=== PATIENT | male | born 1975 | race American Indian/Alaskan Native ===

== ENCOUNTER 2019-03-14 15:42 | Inpatient (IN) | payer BC ==
--- NOTE | 2019-03-14 15:56 | Event Note ---
ED Screening Note ED Screening Note: went to have a physical, said his blood pressure was high he denies any symptoms no vision changes, no numbness, weakness, no CP, no SOB, no DUNN states he has not seen a PCP in 2-3 years, states it was high then but they were observing it family hx of HTN This initial assessment/diagnostic orders/clinical plan/treatment(s) is/are subject to change based on patients health status, clinical progression and re- assessment by fellow clinical providers in the ED. Further treatment and workup at subsequent clinical providers discretion. Patient/guardian urged not to elope from the ED as their condition may be serious if not clinically assessed and managed. Initial orders include: labs, MAIN for medication management
[2019-03-14] MEDS ORDERED: cloNIDine 0.2 MG TAB PO ONE (16:25)
[2019-03-14 17:02] LABS: Hematocrit 38.9 % (35.5-45.6); Hemoglobin 13.2 gm/dl (11.8-15.2); Mean Corpuscular HGB Conc 34 % (32-34); Mean Corpuscular Volume 92 fl (84-94); Platelet Count 373 K/mm3 (140-440); Red Blood Count 4.22 M/mm3 (3.65-5.03); Red Cell Distribution Width 15.7 % (13.2-15.2)
[2019-03-14 17:20] LABS: Calcium 9.4 mg/dL (8.4-10.2)
--- NOTE | 2019-03-14 17:42 | Emergency Department Report ---
ED General Adult HPI - General Chief complaint: High BP Stated complaint: HBP Time Seen by Provider: 03/14/19 15:53 Source: patient Mode of arrival: Ambulatory Limitations: No Limitations - History of Present Illness Initial comments: 44-year-old iobese male with no significant past medical history presents to the hospital with complains of elevated blood pressure. Patient starting a new job and his blood pressure was elevated with systolic greater than 200 during his work physical. Patient not had any symptoms. Denies headache, blurred vision, chest pain, shortness of breath, decreased urinary output. Last doctor visit and blood pressure check was over 2 years ago and at that time it was high with plan to monitor his bp. He hasn't followed up since. Positive family history of hypertension. - Related Data Allergies Allergy/AdvReac Type Severity Reaction Status Date / Time No Known Allergies Allergy Unverified 03/14/19 15:45 ED Review of Systems ROS: Stated complaint: HBP Other details as noted in HPI Comment: All other systems reviewed and negative ED Past Medical Hx - Past Medical History Previous Medical History?: No - Surgical History Past Surgical History?: No - Social History Smoking Status: Never Smoker Substance Use Type: None ED Physical Exam - General Limitations: No Limitations - Other Other exam information: General: No acute distress Head: Atraumatic Eyes: normal appearance ENT: Moist mucous membranes Neck: Normal appearance, no midline tenderness Chest: Clear to auscultation bilaterally CV: Regular rate and rhythm Abdomen: Soft, normal bowel sounds, nontender, nondistended, no rebound or guarding Back: Normal inspection Extremity: Normal inspection infection, full range of motion Neuro: Alert O x 3, no facial asymmetry, speech clear, no gross motor sensory deficit Psych: Appropriate behavior Skin: No rash ED Course Vital Signs 03/14/19 03/14/19 03/14/19 15:54 16:18 17:00 Temperature 98.3 F Pulse Rate 106 H 92 H Respiratory 18 11 L Rate Blood Pressure 270/157 224/129 216/107 O2 Sat by Pulse 97 99 Oximetry 03/14/19 03/14/19 17:05 17:31 Temperature Pulse Rate 87 Respiratory 24 Rate Blood Pressure 219/117 208/112 O2 Sat by Pulse 95 Oximetry - Reevaluation(s) Reevaluation #1: 03/14/19 17:54 bp currently 180/111 after clonidine 0.2 mg. pt remains asymptomatic - Consultations Consultation #1: 03/14/19 17:56 case d/w Dr guzmán advises admission due to renal insuf and need for bp management ED Medical Decision Making - Lab Data Result diagrams: 03/14/19 16:25 03/14/19 16:25 Lab Results 03/14/19 03/14/19 Range/Units 16:25 16:25 WBC 8.9 (4.5-11.0) K/mm3 RBC 4.22 (3.65-5.03) M/mm3 Hgb 13.2 (11.8-15.2) gm/dl Hct 38.9 (35.5-45.6) % MCV 92 (84-94) fl MCH 31 (28-32) pg MCHC 34 (32-34) % RDW 15.7 H (13.2-15.2) % Plt Count 373 (140-440) K/mm3 Sodium 139 (137-145) mmol/L Potassium 4.3 (3.6-5.0) mmol/L Chloride 101.4 (98-107) mmol/L Carbon Dioxide 24 (22-30) mmol/L Anion Gap 18 mmol/L BUN 20 (9-20) mg/dL Creatinine 2.0 H (0.8-1.5) mg/dL Estimated GFR 37 ml/min BUN/Creatinine Ratio 10 % Glucose 100 (75-100) mg/dL Calcium 9.4 (8.4-10.2) mg/dL - EKG Data -: EKG Interpreted by Me EKG shows normal: sinus rhythm, ST-T waves (inf lat t wave inv, lvh) - EKG Data When compared to previous EKG there are: previous EKG unavailable - Medical Decision Making + htn uncontrolled, new diagnosis BP improved with clonidine 0.2 mg Renal insufficiency noted without prior for comparison Discussed with pl sql programmer who recommends admission Although patient is asymptomatic there are signs of hypertensive emergency given renal insufficiency of unknown duration patient will be admitted to the hospitalist service for further management of blood pressure and nephrology consultation. I suspect the Renal insuf is chronic given lack of acidosis and hyperkalemia - Differential Diagnosis htn emergency vs urgency Critical Care Time: No Critical care attestation.: If time is entered above; I have spent that time in minutes in the direct care of this critically ill patient, excluding procedure time. ED Disposition Clinical Impression: Obesity, Uncontrolled hypertension, Renal insufficiency Disposition: OP ADMIT IP TO THIS HOSP Is pt being admited?: Yes Condition: Stable Time of Disposition: 18:02 (Dr Maldonado/hosp)
[2019-03-14] MEDS ORDERED: HYDROmorphone 1 MG/1 ML INJ IV PRN (18:41)
[2019-03-14] MEDS ORDERED: ONDANSETRON 4 MG/2 ML INJ IV PRN (18:41)
[2019-03-14] MEDS ORDERED: oxyCODONE /ACETAMINOPHEN 5-325MG TAB PO PRN (18:41)
[2019-03-14] MEDS ORDERED: ACETAMINOPHEN 325 MG TAB PO PRN (18:41)
[2019-03-14] MEDS ORDERED: hydrALAZINE 20 MG/1 ML INJ IV PRN (18:43)
--- NOTE | 2019-03-14 19:21 | History and Physical Report ---
History of Present Illness Date of examination: 03/14/19 Date of admission: 03/14/19 18:04 Chief complaint: Elevated Blood pressure History of present illness: Patient is a 44-year-old male with a past medical history of hypertension who presents to the ER today with complaints of elevated blood pressure. Patient states he was doing a physical for new job today and his blood pressure was elevated at 240/? and was sent directly to the ER. He states that he does not currently have a primary care physician and denies chest pain, blurry vision, headache, shortness of breath or any other complaints at this time. Past History Past Medical History: hypertension Past Surgical History: Other (L Knee? 2011) Social history: denies: smoking, alcohol abuse Family history: CAD, cancer, diabetes, hypertension, stroke Medications and Allergies Allergies Allergy/AdvReac Type Severity Reaction Status Date / Time No Known Allergies Allergy Unverified 03/14/19 15:45 Active Meds: Active Medications Acetaminophen (Tylenol) 650 mg PO Q4H PRN PRN Reason: Pain MILD(1-3)/Fever >100.5/DUNN Carvedilol (Coreg) 12.5 mg PO BID [facility] Hydralazine HCl (Apresoline) 10 mg IV Q2H PRN PRN Reason: HTN SBP>160 Hydromorphone HCl (Dilaudid) 0.5 mg IV Q3H PRN PRN Reason: Pain , Severe (7-10) Nifedipine (Procardia Xl) 90 mg PO QDAY [facility]ODA Ondansetron HCl (Zofran) 4 mg IV Q8H PRN PRN Reason: Nausea And Vomiting Oxycodone/Acetaminophen (Percocet 5/325) 1 tab PO Q6H PRN PRN Reason: Pain, Moderate (4-6) Sodium Chloride (Sodium Chloride Flush Syringe 10 Ml) 10 ml IV BID [facility]ODA Sodium Chloride (Sodium Chloride Flush Syringe 10 Ml) 10 ml IV PRN PRN PRN Reason: LINE FLUSH Valsartan (Diovan) 160 mg PO BID [facility] Review of Systems Constitutional: no fever, no chills, no sweats, no fatigue, no weakness Ears, nose, mouth and throat: no nose pain, no nasal congestion, no sinus pressure, no hoarseness, no swelling in mouth, no swelling in throat, no headache Cardiovascular: high blood pressure, no chest pain, no orthopnea, no palpitations, no rapid/irregular heart beat Respiratory: no cough, no congestion, no pain Gastrointestinal: no nausea, no vomiting Genitourinary Male: no flank pain Rectal: no pain, no incontinence Musculoskeletal: no neck pain, no shooting leg pain, no leg numbness/tingling Integumentary: no pruritis, no wounds, no lesions, no depigmentation Neurological: no head injury, no weakness, no convulsions, no motor disturbance, no loss of vision Psychiatric: no anxiety, no hallucinations, no difficulties concentrating Endocrine: no cold intolerance, no heat intolerance Hematologic/Lymphatic: no easy bruising Allergic/Immunologic: no anaphylaxis Exam - Constitutional Vitals: Temp Pulse Resp BP Pulse Ox 98.3 F 87 24 208/112 95 03/14/19 15:54 03/14/19 17:31 03/14/19 17:31 03/14/19 17:31 03/14/19 17:31 General appearance: Present: no acute distress - EENT Eyes: Present: PERRL ENT: hearing intact, clear oral mucosa - Neck Neck: Present: supple, normal ROM - Respiratory Respiratory effort: normal Respiratory: bilateral: CTA - Cardiovascular Heart Sounds: Present: S1 & S2. Absent: rub, click - Extremities Extremities: pulses symmetrical, No edema Peripheral Pulses: within normal limits - Abdominal General gastrointestinal: Present: soft, non-tender, normal bowel sounds Male genitourinary: Present: deferred - Integumentary Integumentary: Present: clear, warm, dry - Musculoskeletal Musculoskeletal: gait normal, strength equal bilaterally - Psychiatric Psychiatric: appropriate mood/affect, intact judgment & insight - Neurologic Neurologic: CNII-XII intact, moves all extremities Results - Labs CBC & Chem 7: 03/14/19 16:25 03/14/19 16:25 Labs: Laboratory Last Values WBC 8.9 K/mm3 (4.5-11.0) 03/14/19 16:25 RBC 4.22 M/mm3 (3.65-5.03) 03/14/19 16:25 Hgb 13.2 gm/dl (11.8-15.2) 03/14/19 16:25 Hct 38.9 % (35.5-45.6) 03/14/19 16:25 MCV 92 fl (84-94) 03/14/19 16:25 MCH 31 pg (28-32) 03/14/19 16:25 MCHC 34 % (32-34) 03/14/19 16:25 RDW 15.7 % (13.2-15.2) H 03/14/19 16:25 Plt Count 373 K/mm3 (140-440) 03/14/19 16:25 Sodium 139 mmol/L (137-145) 03/14/19 16:25 Potassium 4.3 mmol/L (3.6-5.0) 03/14/19 16:25 Chloride 101.4 mmol/L (98-107) 03/14/19 16:25 Carbon Dioxide 24 mmol/L (22-30) 03/14/19 16:25 Anion Gap 18 mmol/L 03/14/19 16:25 BUN 20 mg/dL (9-20) 03/14/19 16:25 Creatinine 2.0 mg/dL (0.8-1.5) H 03/14/19 16:25 Estimated GFR 37 ml/min 03/14/19 16:25 BUN/Creatinine Ratio 10 % 03/14/19 16:25 Glucose 100 mg/dL (75-100) 03/14/19 16:25 Calcium 9.4 mg/dL (8.4-10.2) 03/14/19 16:25 - Imaging and Cardiology EKG: report reviewed (sinus rhythm. old Anterior infarct) Assessment and Plan Assessment and plan: Hypertensive emergency -BP control with IV hydralazine to target normotension -Monitor blood pressure and adjust ordered meds as needed -Monitor blood pressure q shift LAYO superimposed CKD -Cr on admission 2.0 -Renal dose all meds -Continue to monitor renal function -Nephrology consulted Morbid obesity BMI 52.6 -Diet and lifestyle modifications -May benefit from OP weight mgmt program DVT PPX - SCD's -heparin Advance Directives: Yes VTE prophylaxis?: Mechanical Plan of care discussed with patient/family: Yes
[2019-03-14] MEDS: NIFEdipine XL 90 MG TAB PO SCH (20:52)
[2019-03-14] MEDS: carvediloL 12.5 MG TAB PO SCH (23:00)
[2019-03-14] MEDS: FAMOTIDINE 20 MG TAB PO SCH (23:01)
[2019-03-14] MEDS: HEPARIN 5,000 UNIT/1 ML VIAL SUB-Q SCH (23:01)
[2019-03-14] MEDS: VALSARTAN 160MG TAB PO SCH (23:05)
[2019-03-14] MEDS ORDERED: SODIUM CHLORIDE 0.45% 1000 ML 1,000 ML IV SCH (23:45)
[2019-03-15 00:50] LABS: Hepatitis B Surface Antigen Non-Reactive (Negative)
[2019-03-15 00:51] LABS: Hepatitis C Virus Antibody Non-Reactive (NonReactive)
[2019-03-15 06:22] LABS: Basophils # (Auto) 0.1 K/mm3 (0.0-0.1); Basophils % (Auto) 0.6 % (0.0-1.8); Eosinophils # (Auto) 0.3 K/mm3 (0.0-0.4); Eosinophils % (Auto) 3.3 % (0.0-4.3); Hematocrit 38.6 % (35.5-45.6); Hemoglobin 13.1 gm/dl (11.8-15.2); Lymphocytes # (Auto) 1.8 K/mm3 (1.2-5.4); Lymphocytes % (Auto) 19.6 % (13.4-35.0); Mean Corpuscular HGB Conc 34 % (32-34); Mean Corpuscular Volume 92 fl (84-94); Monocytes # (Auto) 0.8 K/mm3 (0.0-0.8); Monocytes % (Auto) 8.3 % (0.0-7.3); Platelet Count 379 K/mm3 (140-440); Red Cell Distribution Width 15.4 % (13.2-15.2)
[2019-03-15 06:43] LABS: Albumin 3.5 g/dL (3.9-5); Calcium 9.3 mg/dL (8.4-10.2)
--- NOTE | 2019-03-15 08:57 | Progress Note ---
Assessment and Plan Assessment and plan: --Hypertensive emergency: Blood pressures in moderate control Patient is noncompliant with medications Continue current antihypertensives PRN hydralazine, optimize medications --Acute kidney injury versus acute on chronic kidney disease Secondary to vasomotor nephropathy Monitor renal function, avoid nephrotoxins Nephrology following --Hypertensive nephropathy; Follow renal evaluation recommendations Optimal control of blood pressures --Morbid obesity BMI 52.6 Advised dietary modification exercise as tolerated And weight reduction when medically stable May benefit from outpatient bariatric surgical consultation For weight reduction program when medically stable --DVT prophylaxis : Heparin Monitor closely and adjust management as needed Plan of care reviewed with the patient and his nurse Consults and recommendations noted and appreciated History Interval history: Patient seen and examined medical records reviewed Admitted with hypertensive emergency Patient's blood pressures are moderate control today Mild shortness of breath denies chest pain Vital signs reviewed Hospitalist Physical - Constitutional Vitals: Temp Pulse Resp BP Pulse Ox 98.2 F 97 H 20 184/104 95 03/15/19 00:11 03/15/19 00:11 03/15/19 00:11 03/15/19 00:11 03/15/19 00:11 General appearance: Present: no acute distress, well-nourished, obese (Morbidly obese) - EENT Eyes: Present: PERRL, EOM intact - Neck Neck: Present: supple, normal ROM - Respiratory Respiratory effort: normal Respiratory: bilateral: diminished, negative: rales, rhonchi, wheezing - Cardiovascular Rhythm: regular Heart Sounds: Present: S1 & S2 - Extremities Extremities: no ischemia, No edema - Abdominal General gastrointestinal: soft, non-tender, non-distended - Integumentary Integumentary: Present: clear, warm - Psychiatric Psychiatric: appropriate mood/affect, cooperative - Neurologic Neurologic: CNII-XII intact, moves all extremities Results - Labs CBC & Chem 7: 03/15/19 05:34 03/15/19 05:34 Labs: Laboratory Last Values WBC 9.1 K/mm3 (4.5-11.0) 03/15/19 05:34 RBC 4.20 M/mm3 (3.65-5.03) 03/15/19 05:34 Hgb 13.1 gm/dl (11.8-15.2) 03/15/19 05:34 Hct 38.6 % (35.5-45.6) 03/15/19 05:34 MCV 92 fl (84-94) 03/15/19 05:34 MCH 31 pg (28-32) 03/15/19 05:34 MCHC 34 % (32-34) 03/15/19 05:34 RDW 15.4 % (13.2-15.2) H 03/15/19 05:34 Plt Count 379 K/mm3 (140-440) 03/15/19 05:34 Lymph % (Auto) 19.6 % (13.4-35.0) 03/15/19 05:34 Lake % (Auto) 8.3 % (0.0-7.3) H 03/15/19 05:34 Eos % (Auto) 3.3 % (0.0-4.3) 03/15/19 05:34 Baso % (Auto) 0.6 % (0.0-1.8) 03/15/19 05:34 Lymph # 1.8 K/mm3 (1.2-5.4) 03/15/19 05:34 Lake # 0.8 K/mm3 (0.0-0.8) 03/15/19 05:34 Eos # 0.3 K/mm3 (0.0-0.4) 03/15/19 05:34 Baso # 0.1 K/mm3 (0.0-0.1) 03/15/19 05:34 Seg Neutrophils % 68.2 % (40.0-70.0) 03/15/19 05:34 Seg Neutrophils # 6.2 K/mm3 (1.8-7.7) 03/15/19 05:34 Sodium 138 mmol/L (137-145) 03/15/19 05:34 Potassium 4.3 mmol/L (3.6-5.0) 03/15/19 05:34 Chloride 98.5 mmol/L (98-107) 03/15/19 05:34 Carbon Dioxide 22 mmol/L (22-30) 03/15/19 05:34 Anion Gap 22 mmol/L 03/15/19 05:34 BUN 25 mg/dL (9-20) H 03/15/19 05:34 Creatinine 2.0 mg/dL (0.8-1.5) H 03/15/19 05:34 Estimated GFR 44 ml/min 03/15/19 05:34 BUN/Creatinine Ratio 13 % 03/15/19 05:34 Glucose 105 mg/dL (75-100) H 03/15/19 05:34 Hemoglobin A1c 6.7 % (4-6) H 03/14/19 16:25 Calcium 9.3 mg/dL (8.4-10.2) 03/15/19 05:34 Total Bilirubin 0.30 mg/dL (0.1-1.2) 03/15/19 05:34 AST 24 units/L (5-40) 03/15/19 05:34 ALT 20 units/L (7-56) 03/15/19 05:34 Alkaline Phosphatase 86 units/L (35-129) 03/15/19 05:34 Total Protein 7.7 g/dL (6.3-8.2) 03/15/19 05:34 Albumin 3.5 g/dL (3.9-5) L 03/15/19 05:34 Albumin/Globulin Ratio 0.8 % 03/15/19 05:34 Hepatitis A IgM Ab Non-reactive (NonReactive) 03/14/19 23:23 Hep Bs Antigen Non-reactive (Negative) 03/14/19 23:23 Hep B Core IgM Ab Non-reactive (NonReactive) 03/14/19 23:23 Hepatitis C Antibody Non-reactive (NonReactive) 03/14/19 23:23 Active Medications - Current Medications Current Medications: Generic Name Dose Route Start Last Admin Trade Name Freq PRN Reason Stop Dose Admin Acetaminophen 650 mg 03/14/19 18:41 Tylenol PO Q4H PRN Pain MILD(1-3)/Fever >100.5/DUNN Carvedilol 12.5 mg 03/14/19 22:00 03/14/19 23:00 Coreg PO 12.5 mg BID [facility]A Administration Famotidine 20 mg 03/14/19 22:00 03/14/19 23:01 Pepcid PO 20 mg BID [facility]A Administration Heparin Sodium (Porcine) 5,000 unit 03/14/19 22:00 03/14/19 23:01 Heparin SUB-Q 5,000 unit Q12HR [facility]ODA Administration Hydralazine HCl 10 mg 03/14/19 18:43 Apresoline IV Q2H PRN HTN SBP>160 Hydromorphone HCl 0.5 mg 03/14/19 18:41 Dilaudid IV Q3H PRN Pain , Severe (7-10) Sodium Chloride 1,000 mls @ 75 mls/hr 03/14/19 23:45 03/15/19 01:33 Nacl 0.45% 1000 Ml IV 03/15/19 12:00 75 mls/hr DIRECT [facility]ODA Administration Nifedipine 90 mg 03/14/19 19:00 03/14/19 20:52 Procardia Xl PO 90 mg QDAY [facility] Administration Ondansetron HCl 4 mg 03/14/19 18:41 Zofran IV Q8H PRN Nausea And Vomiting Oxycodone/Acetaminophen 1 tab 03/14/19 18:41 Percocet 5/325 PO Q6H PRN Pain, Moderate (4-6) Sodium Chloride 10 ml 03/14/19 22:00 03/14/19 23:12 Sodium Chloride Flush Syringe 10 Ml IV 10 ml BID [facility] Administration Sodium Chloride 10 ml 03/14/19 18:41 Sodium Chloride Flush Syringe 10 Ml IV PRN PRN LINE FLUSH Valsartan 160 mg 03/14/19 22:00 03/14/19 23:05 Diovan PO 160 mg BID [facility] Administration
[2019-03-15] MEDS: VALSARTAN 160MG TAB PO SCH ×2 (10:05→21:19)
[2019-03-15] MEDS: HEPARIN 5,000 UNIT/1 ML VIAL SUB-Q SCH ×2 (10:06→21:20)
[2019-03-15] MEDS: NIFEdipine XL 90 MG TAB PO SCH (10:06)
[2019-03-15] MEDS: FAMOTIDINE 20 MG TAB PO SCH ×2 (10:06→21:19)
[2019-03-15] MEDS: carvediloL 12.5 MG TAB PO SCH ×2 (10:06→21:19)
--- NOTE | 2019-03-15 11:17 | Consultation ---
History of Present Illness Consult date: 03/15/19 Requesting physician: VANIA PETERS Consult reason: hypertension History of present illness: Mr. Mejia is a 44 y/o male with a medical history significant for hypertension who presented to [facility] with a hypertensive emergency. He is not known to our practice and does not see a provider regularly. His elevated BP was discovered during a routine pre-employment physical; however, he has not followed up with a physician since that time. He denies any cardiac complaints on exam today. Echocardiogram today reviewed: EF of 55 to 60 percent, moderate LVH and a dilated RA. Past History Past Medical History: hypertension Past Surgical History: Other (L Knee? 2011) Social history: denies: smoking, alcohol abuse Family history: CAD, cancer, diabetes, hypertension, stroke Medications and Allergies Allergies Allergy/AdvReac Type Severity Reaction Status Date / Time No Known Allergies Allergy Unverified 03/14/19 15:45 Home Medications Medication Instructions Recorded Confirmed Last Taken Type No Known Home Medications [No 03/14/19 03/14/19 Unknown History Reported Home Medications] Active Meds: Active Medications Acetaminophen (Tylenol) 650 mg PO Q4H PRN PRN Reason: Pain MILD(1-3)/Fever >100.5/DUNN Carvedilol (Coreg) 12.5 mg PO BID [facility] Last Admin: 03/15/19 10:06 Dose: 12.5 mg Documented by: Famotidine (Pepcid) 20 mg PO BID [facility] Last Admin: 03/15/19 10:06 Dose: 20 mg Documented by: Heparin Sodium (Porcine) (Heparin) 5,000 unit SUB-Q Q12HR [facility] Last Admin: 03/15/19 10:06 Dose: 5,000 unit Documented by: Hydralazine HCl (Apresoline) 10 mg IV Q2H PRN PRN Reason: HTN SBP>160 Hydromorphone HCl (Dilaudid) 0.5 mg IV Q3H PRN PRN Reason: Pain , Severe (7-10) Sodium Chloride (Nacl 0.45% 1000 Ml) 1,000 mls @ 75 mls/hr IV DIRECT [facility] Stop: 03/15/19 12:00 Last Admin: 03/15/19 01:33 Dose: 75 mls/hr Documented by: Nifedipine (Procardia Xl) 90 mg PO QDAY [facility] Last Admin: 03/15/19 10:06 Dose: 90 mg Documented by: Ondansetron HCl (Zofran) 4 mg IV Q8H PRN PRN Reason: Nausea And Vomiting Oxycodone/Acetaminophen (Percocet 5/325) 1 tab PO Q6H PRN PRN Reason: Pain, Moderate (4-6) Sodium Chloride (Sodium Chloride Flush Syringe 10 Ml) 10 ml IV BID [facility] Last Admin: 03/15/19 10:05 Dose: 10 ml Documented by: Sodium Chloride (Sodium Chloride Flush Syringe 10 Ml) 10 ml IV PRN PRN PRN Reason: LINE FLUSH Valsartan (Diovan) 160 mg PO BID [facility] Last Admin: 03/15/19 10:05 Dose: 160 mg Documented by: Review of Systems All systems: negative Physical Examination Last Vital Signs Temp 98.5 F 03/15/19 06:20 Pulse 84 03/15/19 06:20 Resp 20 03/15/19 06:20 BP 138/75 03/15/19 06:20 Pulse Ox 96 03/15/19 06:20 General appearance: no acute distress HEENT: Positive: PERRL Neck: Positive: neck supple Cardiac: Positive: Reg Rate and Rhythm Lungs: Positive: Normal Exam Neuro: Positive: Grossly Intact Abdomen: Positive: Unremarkable Male genitourinary: Positive: deferred Skin: Positive: Clear Musculoskeletal: Normal Range of Motion Extremities: Present: normal Results 03/15/19 05:34 03/15/19 05:34 Cardiac Enzymes 03/15/19 Range/Units 05:34 AST 24 (5-40) units/L CBC 03/14/19 03/15/19 Range/Units 16:25 05:34 WBC 8.9 9.1 (4.5-11.0) K/mm3 RBC 4.22 4.20 (3.65-5.03) M/mm3 Hgb 13.2 13.1 (11.8-15.2) gm/dl Hct 38.9 38.6 (35.5-45.6) % Plt Count 373 379 (140-440) K/mm3 Lymph # 1.8 (1.2-5.4) K/mm3 Cobb # 0.8 (0.0-0.8) K/mm3 Eos # 0.3 (0.0-0.4) K/mm3 Baso # 0.1 (0.0-0.1) K/mm3 Comprehensive Metabolic Panel 03/14/19 03/15/19 Range/Units 16:25 05:34 Sodium 139 138 (137-145) mmol/L Potassium 4.3 4.3 (3.6-5.0) mmol/L Chloride 101.4 98.5 (98-107) mmol/L Carbon Dioxide 24 22 (22-30) mmol/L BUN 20 25 H (9-20) mg/dL Creatinine 2.0 H 2.0 H (0.8-1.5) mg/dL Glucose 100 105 H (75-100) mg/dL Calcium 9.4 9.3 (8.4-10.2) mg/dL AST 24 (5-40) units/L ALT 20 (7-56) units/L Alkaline Phosphatase 86 (35-129) units/L Total Protein 7.7 (6.3-8.2) g/dL Albumin 3.5 L (3.9-5) g/dL - Imaging and Cardiology Echo: report reviewed (03/15/19: EF 55 to 60%, moderate LVH, dilated RA) EKG interpretations - Telemetry EKG Rhythm: Sinus Rhythm (with ST depression) Assessment and Plan Mr. Mejia is a 44 y/o male admitted with a hypertensive emergency. BP and sinus tachycardia improved - continue current management. Await further recommendations from nephrology. The patient has been seen in conjunction with Dr. Limon, who agrees with the assessment and plan. - Patient Problems (1) Hypertensive emergency without congestive heart failure Current Visit: Yes Status: Acute (2) LAYO (acute kidney injury) Current Visit: Yes Status: Acute (3) Obesity Current Visit: Yes Status: Chronic
--- NOTE | 2019-03-15 12:41 | Consultation ---
History of Present Illness - Reason for Consult Consult date: 03/15/19 - History of Present Illness Mr. Mejia is a 44yo gentleman with history of hypertension x 3 years who presented to the ED Vitals in the ED were notable for BP 270/157. Labs were collected and SCr 2.0mg/dL Mr. Mejia denies a prior history of kidney disease. Despite a 3 year history of hypertension, he states that he is not taking antiHTN medications. He denies hemoptysis, hematuria, recurrent UTI, nephrolithiasis, NSAID use and family history of kidney disease He denies chest pain, SOB, leg swelling. Past History Past Medical History: hypertension Past Surgical History: Other (L Knee? 2011) Social history: denies: smoking, alcohol abuse Family history: CAD, cancer, diabetes, hypertension, stroke Medications and Allergies Allergies Allergy/AdvReac Type Severity Reaction Status Date / Time No Known Allergies Allergy Unverified 03/14/19 15:45 Home Medications Medication Instructions Recorded Confirmed Last Taken Type No Known Home Medications [No 03/14/19 03/14/19 Unknown History Reported Home Medications] Active Meds: Active Medications Acetaminophen (Tylenol) 650 mg PO Q4H PRN PRN Reason: Pain MILD(1-3)/Fever >100.5/DUNN Carvedilol (Coreg) 12.5 mg PO BID [facility] Last Admin: 03/15/19 10:06 Dose: 12.5 mg Documented by: Famotidine (Pepcid) 20 mg PO BID [facility] Last Admin: 03/15/19 10:06 Dose: 20 mg Documented by: Heparin Sodium (Porcine) (Heparin) 5,000 unit SUB-Q Q12HR [facility] Last Admin: 03/15/19 10:06 Dose: 5,000 unit Documented by: Hydralazine HCl (Apresoline) 10 mg IV Q2H PRN PRN Reason: HTN SBP>160 Hydromorphone HCl (Dilaudid) 0.5 mg IV Q3H PRN PRN Reason: Pain , Severe (7-10) Nifedipine (Procardia Xl) 90 mg PO QDAY [facility] Last Admin: 03/15/19 10:06 Dose: 90 mg Documented by: Ondansetron HCl (Zofran) 4 mg IV Q8H PRN PRN Reason: Nausea And Vomiting Oxycodone/Acetaminophen (Percocet 5/325) 1 tab PO Q6H PRN PRN Reason: Pain, Moderate (4-6) Sodium Chloride (Sodium Chloride Flush Syringe 10 Ml) 10 ml IV BID [facility] Last Admin: 03/15/19 10:05 Dose: 10 ml Documented by: Sodium Chloride (Sodium Chloride Flush Syringe 10 Ml) 10 ml IV PRN PRN PRN Reason: LINE FLUSH Valsartan (Diovan) 160 mg PO BID [facility] Last Admin: 03/15/19 10:05 Dose: 160 mg Documented by: Review of Systems All systems: negative Exam - Vital Signs Vital signs: Vital Signs Temp Pulse Resp BP Pulse Ox 98.3 F 106 H 18 270/157 97 03/14/19 15:54 03/14/19 15:54 03/14/19 15:54 03/14/19 15:54 03/14/19 15:54 - General Appearance General appearance: well-developed, well-nourished, obese EENT: ATNC Respiratory: Clear to Ascultation Heart: regular, S1S2 Gastrointestinal: Present: obese. Absent: tenderness, distended Integumentary: no rash, warm and dry Neurologic: no focal deficit, alert and oriented x3 Musculoskeletal: Present: other (no edema) Psychiatric: cooperative Results - Lab Results 03/15/19 05:34 03/15/19 05:34 Most recent lab results Calcium 9.3 mg/dL (8.4-10.2) 03/15/19 05:34 Assessment and Plan Impression: * Acute kidney injury vs underlying chronic kidney disease secondary to hypertensive nephrosclerosis * Accelerated hypertension * Morbid obesity Plan: * Abnormal renal function noted. Patient likely with underlying CKD secondary to hypertensive nephrosclerosis vs FSGS. Given body habitus, I expect that the eGFR underestimates his actual kidney function - recommend 24h urine CrCl as an outpatient * Will obtain renal ultrasound, UA and UPCR * Continue antiHTN medications as BP control has improved * Avoid potential nephrotoxins * Dose medications for renal function * AM labs ordered * Have recommended close nephrology follow up upon discharge
[2019-03-15 16:30] LABS: Bilirubin,Urine NEG (Negative); Blood,Urine NEG (Negative); Color,Urine Yellow (Yellow); Mucus,Urine FEW /HPF; Urobilinogen,Urine < 2.0 mg/dL (<2.0)
[2019-03-15 16:34] LABS: Protein,Urine >500 mg/dL (Negative)
[2019-03-15 16:41] LABS: Protein/Creatinine Ratio,Urine 0.52
[2019-03-16 06:04] LABS: Calcium 8.9 mg/dL (8.4-10.2)
[2019-03-16] MEDS: carvediloL 12.5 MG TAB PO SCH (09:45)
[2019-03-16] MEDS: HEPARIN 5,000 UNIT/1 ML VIAL SUB-Q SCH (09:45)
[2019-03-16] MEDS: VALSARTAN 160MG TAB PO SCH (09:45)
[2019-03-16] MEDS: FAMOTIDINE 20 MG TAB PO SCH (09:45)
[2019-03-16] MEDS: NIFEdipine XL 90 MG TAB PO SCH (09:45)
--- NOTE | 2019-03-16 12:04 | Progress Note ---
Assessment and Plan Cardiac status is stable. Continue antihypertensives and other cardiac management. He may be discharged home from our perspective. Follow with Dr. Limon in our office in 7-10 days ([phone]). The patient has been seen in conjunction with Dr. Limon, who agrees with the assessment and plan. - Patient Problems (1) Hypertensive emergency without congestive heart failure Current Visit: Yes Status: Acute (2) LAYO (acute kidney injury) Current Visit: Yes Status: Acute (3) Obesity Current Visit: Yes Status: Chronic Subjective Date of service: 03/16/19 Interval history: The patient is lying in bed in [facility]. He has no complaints. BP markedly improved . ST in 100s on telemetry. Objective Last Vital Signs Temp 98.1 F 03/16/19 04:58 Pulse 87 03/15/19 21:19 Resp 16 03/16/19 04:58 BP 156/95 03/16/19 04:58 Pulse Ox 96 03/15/19 22:00 - Physical Examination General: No Apparent Distress HEENT: Positive: PERRL Neck: Positive: neck supple Cardiac: Positive: Reg Rate and Rhythm Lungs: Positive: Decreased Breath Sounds Neuro: Positive: Grossly Intact Abdomen: Positive: Unremarkable /Rectal: Other (deferred) Skin: Positive: Clear Musculoskeletal: Normal Range of Motion Extremities: Present: normal - Labs and Meds Comprehensive Metabolic Panel 03/16/19 Range/Units 05:24 Sodium 139 (137-145) mmol/L Potassium 4.3 (3.6-5.0) mmol/L Chloride 102.5 (98-107) mmol/L Carbon Dioxide 24 (22-30) mmol/L BUN 27 H (9-20) mg/dL Creatinine 2.1 H (0.8-1.5) mg/dL Glucose 114 H (75-100) mg/dL Calcium 8.9 (8.4-10.2) mg/dL - Imaging and Cardiology EKG: report reviewed (sinus rhythm. old Anterior infarct) Echo: report reviewed (03/15/19: EF 55 to 60%, moderate LVH, dilated RA) - Telemetry EKG Rhythm: Sinus Rhythm
[2019-03-16 13:15] VITALS: BP 127/80
--- NOTE | 2019-03-16 13:48 | Discharge Summary ---
Providers - Providers Date of Admission: 03/14/19 18:04 Date of discharge: 03/16/19 Attending physician: JAZMYNE OROSCO 03/14/19 18:39 Consult to Physician [CONS] Urgent Comment: Consulting Provider: ARON HOOKS Physician Instructions: Reason For Exam: renal insuf, uncontrolled htn 03/14/19 18:46 Consult to Physician [CONS] Routine Comment: Consulting Provider: MIMI RUSHING Physician Instructions: Reason For Exam: htn emergency Primary care physician: ACLS NURSE Hospitalization Reason for admission: Hypertensive Emergency Condition: Stable Pertinent studies: ECHO Hospital course: Patient is a 44-year-old male with a past medical history of hypertension who presents to the ER today with complaints of elevated blood pressure. Patient states he was doing a physical for new job today and his blood pressure was elevated at 240/? and was sent directly to the ER. He states that he does not currently have a primary care physician and denies chest pain, blurry vision, headache, shortness of breath or any other complaints at this time. Admitted and managed with multiple antihypertensives, BP brought to reasonable levels.Evaluated by nephrology and cardiology, meds optimised. Symptoms resolved, Advised to comply with medications and diet. Today patient is comfortable,no new complaints,vitals stable Cleared by consultants,Stable at discharge. Discharge Diagnosis: --Hypertensive emergency: Blood pressures in moderate control Continue current antihypertensives PRN hydralazine, --Acute kidney injury versus acute on chronic kidney disease Secondary to vasomotor nephropathy Monitor renal function, avoid nephrotoxins --Hypertensive nephropathy; Optimal control of blood pressures --Morbid obesity BMI 52.6 Advised dietary modification exercise as tolerated And weight reduction when medically stable May benefit from outpatient bariatric surgical consultation For weight reduction program when medically stable --DVT prophylaxis : Heparin Stable at discharge Disposition: DC-01 TO HOME OR SELFCARE Time spent for discharge: 32 min Core Measure Documentation - Palliative Care Palliative Care/ Comfort Measures: Not Applicable - Core Measures Any of the following diagnoses?: none Exam - Constitutional Vitals: Temp Pulse Resp BP Pulse Ox 97.3 F L 78 20 127/80 97 03/16/19 11:57 03/16/19 11:57 03/16/19 11:57 03/16/19 11:57 03/16/19 11:57 General appearance: Present: no acute distress, well-nourished - EENT Eyes: Present: PERRL, EOM intact - Neck Neck: Present: supple, normal ROM - Respiratory Respiratory effort: normal Respiratory: bilateral: diminished, negative: rales, rhonchi, wheezing - Cardiovascular Rhythm: regular Heart Sounds: Present: S1 & S2 - Extremities Extremities: no ischemia, No edema - Abdominal General gastrointestinal: Present: soft, non-tender, non-distended, normal bowel sounds - Integumentary Integumentary: Present: clear, warm - Musculoskeletal Musculoskeletal: strength equal bilaterally - Psychiatric Psychiatric: appropriate mood/affect, cooperative - Neurologic Neurologic: CNII-XII intact, moves all extremities Plan Activity: no restrictions Diet: other (cardiac diet) Additional Instructions: Advised weight reduction and medically stable. If you have chest pain or shortness of breath contact M.D. or go to emergency room Follow up with: PRIMARY CARE, [Primary Care Provider] - 3-5 Days SENG ROSS MD [Staff Physician] - 7 Days ARON HOOKS MD [Staff Physician] - 7 Days Prescriptions: carvediloL [Coreg] 12.5 mg PO BID #60 tablet Valsartan [Diovan] 160 mg PO BID #60 tablet NIFEdipine XL [Procardia Xl] 90 mg PO QDAY #30 tablet
== END 2019-03-16 16:16 | disposition home or self-care (01) | DRG 304 ==
LOC: ED 15:42 → 3A 18:04
PROVIDERS: ADMIT Internal Medicine; ATTEND Internal Medicine
DX: I16.1 Hypertensive emergency (principal); N17.0 Acute kidney failure with tubular necrosis; Z68.43 Body mass index [BMI] 50.0-59.9, adult; I12.9 Hypertensive chronic kidney disease with stage 1 through stage 4 chronic kidney disease, or unspecified chronic kidney disease; N18.9 Chronic kidney disease, unspecified; E66.01 Morbid (severe) obesity due to excess calories; Z71.3 Dietary counseling and surveillance; Z83.3 Family history of diabetes mellitus; Z80.9 Family history of malignant neoplasm, unspecified; Z82.3 Family history of stroke; Z82.49 Family history of ischemic heart disease and other diseases of the circulatory system
CPT/HCPCS: 36415; 80048; 80053; 80074; 81001; 82570; 83036; 84156; 85025; 85027; 87086; 93005; 93010; 93306; G0378; J1644; J7030

== ENCOUNTER 2019-03-24 11:37 | Outpatient (CLI) | payer BC ==
[2019-03-24 12:43] LABS: Albumin 3.9 g/dL (3.9-5); Calcium 9.3 mg/dL (8.4-10.2)
== END 2019-03-24 11:38 | disposition home or self-care (01) ==
LOC: LAB 11:37
PROVIDERS: ATTEND Student in an Organized Health Care Education/Training Program
DX: R94.4 Abnormal results of kidney function studies (principal)
CPT/HCPCS: 36415; 80048; 82040; 84100